=== PATIENT | female | born 1965 | race Caucasian/White ===

== ENCOUNTER → 2025-02-03 | Outpatient (CLI) | payer BC ==
--- NOTE | 2025-02-04 13:08 | MM ---
Reason for Exam: Screening (asymptomatic). Patient History: Menarche at age 10. First Full-Term at age 25. Postmenopausal. Patient has history of breast feeding. 11/18/2005, Bilateral Implants. Risk Values: Rashmi 5 year model risk: 1.6%. NCI Lifetime model risk: 7.9%. Prior Study Comparison: No prior studies available for comparison. Tissue Density: The breasts are heterogeneously dense, which may obscure small masses. Findings: Analyzed By CAD. Bilateral retropectoral saline implants. There is no suspicious group of microcalcifications or new suspicious mass in either breast. Overall Assessment: Benign, BI-RAD 2 Management: Screening Mammogram of both breasts in 1 year. Patient should continue monthly self-breast exams. A clinical breast exam by your physician is recommended on an annual basis. This exam should not preclude additional follow-up of suspicious palpable abnormalities. Note on Rashmi scores and lifetime risk: 1. A Rashmi score greater than 3% is considered moderate risk. If this is the case, consider specialist referral to assess eligibility for a risk reducing agent. 2. If overall lifetime risk for the development of breast cancer is 20% or higher, the patient may qualify for future screening with alternating mammogram and breast MRI. [facility], , 02/04/2025 1:05 PM. Electronically signed and approved by: Kimberlyn Peña M.D. Radiologist
== END | disposition home or self-care (01) ==
LOC: RADMAMWWP 12:45
PROVIDERS: ATTEND Family Medicine
DX: Z12.31 Encounter for screening mammogram for malignant neoplasm of breast (principal); R92.333 Mammographic heterogeneous density, bilateral breasts; Z98.82 Breast implant status; Z78.0 Asymptomatic menopausal state
CPT/HCPCS: 77063; 77067